=== PATIENT | female | born 1975 | race Caucasian/White ===

== ENCOUNTER 2017-03-25 10:28 | Outpatient (CLI) | payer MEDICAID ==
[2017-03-25 13:20] LABS: CHOL/HDL RATIO 6.3 (<4.4); CHOLESTEROL 190 mg/dL; HDL CHOLESTEROL 30 mg/dL; TRIGLYCERIDES 205 mg/dL; VLDL CHOLESTEROL 41 mg/dL
[2017-03-25 13:21] LABS: THYROID STIMULATING HORMONE 2.23 uIU/mL (0.34-5.60)
[2017-03-27 18:21] LABS: ANA SCREEN POSITIVE (NEGATIVE)
== END 2017-03-25 10:29 | disposition home or self-care (01) ==
LOC: LAB.N 10:28
PROVIDERS: ATTEND Nurse Practitioner Gerontology
DX: Z13.9 Encounter for screening, unspecified (principal); E55.9 Vitamin D deficiency, unspecified; E53.8 Deficiency of other specified B group vitamins; E07.9 Disorder of thyroid, unspecified; M25.50 Pain in unspecified joint
CPT/HCPCS: 36415; 80061; 82306; 82607; 84443; 85651; 86038; 86140; 86430

== ENCOUNTER 2018-02-23 08:00 | Outpatient (CLI) | payer MEDICAID ==
[2018-02-23 19:14] LABS: THYROID STIMULATING HORMONE 2.44 uIU/mL (0.34-5.60)
[2018-02-23 19:15] LABS: FREE T4 (FREE THYROXINE) 0.62 ng/dL (0.58-1.64)
== END 2018-02-23 08:01 | disposition home or self-care (01) ==
LOC: LAB.N 08:00
PROVIDERS: ATTEND Physician Assistant Medical
DX: E06.3 Autoimmune thyroiditis (principal)
CPT/HCPCS: 36415; 84439; 84443; 84481

== ENCOUNTER 2018-04-08 09:45 | Outpatient (CLI) | payer MEDICAID ==
[2018-04-08 13:25] LABS: THYROID STIMULATING HORMONE 1.07 uIU/mL (0.34-5.60)
[2018-04-08 13:29] LABS: FREE T4 (FREE THYROXINE) 0.57 ng/dL (0.58-1.64)
== END 2018-04-08 09:46 ==
LOC: LAB.N 09:45
PROVIDERS: ATTEND Physician Assistant Medical
DX: E06.3 Autoimmune thyroiditis (principal)
CPT/HCPCS: 36415; 84439; 84443; 84481

== ENCOUNTER 2019-04-22 22:21 | Outpatient (CLI) | payer MEDICAID ==
--- NOTE | 2019-04-23 01:41 | Ultrasound Report ---
Reason: CALF PAIN RIGHT Procedure Date: 04/22/2019 Accession Number: [id number] / [id number] Procedure: US - Duplex Ext Veins Right CPT Code: FULL RESULT: EXAM: RIGHT LOWER EXTREMITY VENOUS ULTRASOUND EXAM DATE: 04/22/2019 11:09 PM. CLINICAL HISTORY: CALF PAIN RIGHT. COMPARISON: None. TECHNIQUE: Real-time sonographic vascular imaging was performed by the education reviewer through the lower extremity utilizing both color-flow and Doppler spectral analysis. Multiple hospital insurance representative static images were saved for review. FINDINGS: Common Femoral Vein (CFV): Normal. CFV-GSV Junction: Normal. Profunda Femoral Vein (PFV): Normal. Femoral Vein (FV) Prox: Normal. Femoral Vein (FV) Mid: Normal. Femoral Vein (FV) Dist: Normal. Popliteal Vein: Normal. Posterior Tibial Veins: Normal. Peroneal Veins: Normal. Contralateral Side CFV: Normal. Other: None. IMPRESSION: No evidence of deep venous thrombosis in the right lower extremity. [facility]
== END 2019-04-22 22:22 | disposition home or self-care (01) ==
LOC: DI 22:21
PROVIDERS: ATTEND Physician Assistant Medical
DX: M79.661 Pain in right lower leg (principal)

== ENCOUNTER 2019-04-22 23:10 | Emergency (ER) | payer MEDICAID ==
--- NOTE | 2019-04-22 23:42 | ED Physician Documentation ---
PD HPI CHEST PAIN - Stated complaint Stated Complaint: RT LEG PX/CP - Chief complaint Chief Complaint: Ext Problem - History obtained from History obtained from: Patient, Family - History of Present Illness Timing - onset: How many days ago (3) Timing - onset during: Rest Timing - duration: Days (3) Timing - details: Gradual onset, Still present Quality: Aching, Pain Location: Left chest Worsened by: Movement, Palpation, Position Associated symptoms: Feeling faint / dizzy. No: Shortness of air, Diaphoresis, Nausea, Vomiting, General Weakness, Palpitations, Cough Similar symptoms before: Diagnosis (PE) Recently seen: Clinic - Additional information Additional information: 44-year-old female with a prior history of a provoked DVT and pulmonary embolism after a section 15 years ago has developed some pain in her right calf last week and she went into see her doctor about it they have ordered an ultrasound of the veins and she had the ultrasound done tonight as an outpatient at the hospital. We do not have results of that at this point. She is come to the emergency department because she is having some pain in her left upper chest the pain is above the breast and below the clavicle and is worsened by movement and deep palpation and with a deep breath the patient can feel the area of pain. She denies any diaphoresis or shortness of breath. She does complain of some joint aches and pains and general fatigue. She also is complaining of some sensation of warmth coming up her shoulders and over her head. This is happening in episodes. She does state that she is 44 years old and she is still menstrating. Review of Systems Constitutional: denies: Fever Eyes: denies: Decreased vision Ears: denies: Ear pain Nose: denies: Rhinorrhea / runny nose, Congestion Throat: denies: Sore throat Cardiac: reports: Chest pain / pressure. denies: Palpitations, Pedal edema, Calf pain Respiratory: denies: Dyspnea, Cough, Wheezing GI: denies: Abdominal Pain, Nausea, Vomiting, Constipation, Diarrhea : denies: Dysuria, Frequency Skin: denies: Rash Musculoskeletal: reports: Extremity pain. denies: Neck pain, Back pain Neurologic: denies: Generalized weakness, Focal weakness, Numbness PD PAST MEDICAL HISTORY - Allergies Allergies/Adverse Reactions: Allergies Allergy/AdvReac Type Severity Reaction Status Date / Time No Known Drug Allergies Allergy Verified 04/22/19 23:18 PD ED PE NORMAL - Vitals Vital signs reviewed: Yes (hypertensive mild ) - General General: Alert and oriented X 3, No acute distress, Well developed/nourished - HEENT HEENT: Atraumatic, PERRL, EOMI, Ears normal - Neck Neck: Supple, no meningeal sign, No bony TTP - Cardiac Cardiac: RRR, No murmur - Respiratory Respiratory: No respiratory distress, Clear bilaterally - Abdomen Abdomen: Normal bowel sounds, Soft, Non tender, Non distended, No organomegaly - Back Back: No CVA TTP, No spinal TTP - Derm Derm: Normal color, Warm and dry, No rash - Extremities Extremities: No deformity, No edema - Neuro Neuro: Alert and oriented X 3, occupational psychologist 2-12 intact, No motor deficit, No sensory deficit, Normal speech Eye Opening: Spontaneous Motor: Obeys Commands Verbal: Oriented GCS Score: 15 - Psych Psych: Normal mood, Normal affect Results - Vitals Vitals: Vital Signs - 24 hr 04/22/19 04/23/19 23:18 02:02 Temperature 36.8 C Heart Rate 62 70 Respiratory 14 16 Rate Blood Pressure 145/69 H 118/81 H O2 Saturation 99 99 Oxygen O2 Source Room air - EKG (time done) 2342 Rate: Rate (enter#) (61) Rhythm: NSR Compare to prior EKG: Old EKG unavailable Computer interpretation: Agree with computer - Labs Labs: Laboratory Tests 04/22/19 04/22/19 04/22/19 23:50 23:50 23:50 WBC 7.4 RBC 4.43 Hgb 11.2 L Hct 37.1 MCV 83.7 MCH 25.3 L MCHC 30.2 L RDW 15.5 H Plt Count 264 MPV 10.1 Neut # (Auto) 4.5 Lymph # (Auto) 2.2 [place] # (Auto) 0.5 Eos # (Auto) 0.1 Baso # (Auto) 0.1 Absolute Nucleated RBC 0.00 Nucleated RBC % 0.0 D-Dimer < 200.0 L Sodium 140 Potassium 4.0 Chloride 105 Carbon Dioxide 26 Anion Gap 9.0 BUN 12 Creatinine 0.8 Estimated GFR (MDRD) 78 L Glucose 118 H Calcium 9.0 Total Bilirubin 0.9 AST 16 ALT 22 Alkaline Phosphatase 80 Troponin I High Sens Total Protein 7.6 Albumin 4.4 Globulin 3.2 Albumin/Globulin Ratio 1.4 Lipase 31 TSH 04/22/19 04/22/19 23:50 23:50 WBC RBC Hgb Hct MCV MCH MCHC RDW Plt Count MPV Neut # (Auto) Lymph # (Auto) [place] # (Auto) Eos # (Auto) Baso # (Auto) Absolute Nucleated RBC Nucleated RBC % D-Dimer Sodium Potassium Chloride Carbon Dioxide Anion Gap BUN Creatinine Estimated GFR (MDRD) Glucose Calcium Total Bilirubin AST ALT Alkaline Phosphatase Troponin I High Sens < 2.3 L Total Protein Albumin Globulin Albumin/Globulin Ratio Lipase TSH 8.95 H - Rads (name of study) chest Radiology: Prelim report reviewed (Impression no acute cardiopulmonary findings radiographically.), EMP read indepedently, See rad report PD MEDICAL DECISION MAKING - ED course Complexity details: reviewed results, re-evaluated patient, considered differential, d/w patient, d/w family ED course: 44-year-old female with symptoms concerning for pulmonary embolism has negative diagnostics including a negative d-dimer and a negative DVT study. She does have some pain in the left chest above her breast and this does appear to be a musculoskeletal issue. I have encouraged the patient to pursue a mammogram and follow-up as well. The patient is found to be hypo-thyroid and I have encouraged her to seek treatment with Synthroid as she has previously had. 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 Your blood work does show you have hypothyroidism and you should restart on your thyroid medication. Follow-up with your primary care doctor. Discharge Date/Time: 04/23/19 02:03
[2019-04-22 23:56] LABS: BASOPHILS # (AUTO) 0.1 10^3/uL (0.0-0.1); BASOPHILS % (AUTO) 0.7 %; EOSINOPHILS # (AUTO) 0.1 10^3/uL (0.0-0.7); EOSINOPHILS % (AUTO) 1.1 %; HGB - HEMOGLOBIN 11.2 g/dL (12.0-16.0); LYMPHOCYTES # (AUTO) 2.2 10^3/uL (1.5-3.5); LYMPHOCYTES % (AUTO) 29.8 %; MEAN CORPUSCULAR HEMOGLOBIN 25.3 pg (27.0-31.0); MEAN CORPUSCULAR HGB CONC 30.2 g/dL (32.0-36.0); MEAN CORPUSCULAR VOLUME 83.7 fL (81.0-99.0); MEAN PLATELET VOLUME 10.1 fL (7.9-10.8); MONOCYTES # (AUTO) 0.5 10^3/uL (0.0-1.0); MONOCYTES % (AUTO) 6.7 %; NEUTROPHILS # (AUTO) 4.5 10^3/uL (1.5-6.6); NEUTROPHILS % (AUTO) 61.3 %; PLT - PLATELET COUNT 264 10^3/uL (130-450); RED BLOOD COUNT 4.43 10^6/uL (4.20-5.40); RED CELL DISTRIBUTION WIDTH 15.5 % (12.0-15.0); WHITE BLOOD COUNT 7.4 x10^3/uL (4.8-10.8)
[2019-04-23 00:08] LABS: ALBUMIN 4.4 g/dL (3.2-5.5); ALBUMIN/GLOBULIN RATIO 1.4 (1.0-2.2); BILIRUBIN,TOTAL 0.9 mg/dL (0.2-1.0); CREATININE 0.8 mg/dL (0.4-1.0); TOTAL PROTEIN 7.6 g/dL (6.7-8.2)
--- NOTE | 2019-04-23 00:13 | XRAY Report ---
Reason: left upper chest pain Procedure Date: 04/23/2019 Accession Number: [id number] / [id number] Procedure: XR - Chest 2 View X-Ray CPT Code: 81838 FULL RESULT: EXAM: CHEST RADIOGRAPHY EXAM DATE: 04/23/2019 12:00 AM. CLINICAL HISTORY: Left upper chest pain. COMPARISON: None. TECHNIQUE: 2 views. FINDINGS: Lungs/Pleura: No infiltrates. No pleural effusions or pneumothorax. Mediastinum: Heart and mediastinal contours are unremarkable. Other: None. IMPRESSION: No acute cardiopulmonary findings radiographically. [facility]
[2019-04-23 02:03] VITALS: BP 118/81
== END 2019-04-23 02:03 | disposition home or self-care (01) ==
LOC: ED 23:10
DX: R07.9 Chest pain, unspecified (principal); E06.3 Autoimmune thyroiditis; M79.661 Pain in right lower leg; Z86.718 Personal history of other venous thrombosis and embolism
CPT/HCPCS: 36415; 71046; 80053; 83690; 84443; 84484; 85025; 85379; 93005; 99283

== ENCOUNTER 2021-03-20 08:00 | Outpatient (CLI) | payer MEDICAID, OTHER ==
[2021-03-20 18:33] LABS: BASOPHILS # (AUTO) 0.1 10^3/uL (0.0-0.1); BASOPHILS % (AUTO) 0.8 %; EOSINOPHILS # (AUTO) 0.1 10^3/uL (0.0-0.7); EOSINOPHILS % (AUTO) 0.9 %; HCT - HEMATOCRIT 35.6 % (37.0-47.0); HGB - HEMOGLOBIN 10.3 g/dL (12.0-16.0); LYMPHOCYTES # (AUTO) 1.2 10^3/uL (1.5-3.5); LYMPHOCYTES % (AUTO) 17.9 %; MEAN CORPUSCULAR HGB CONC 28.9 g/dL (32.0-36.0); MEAN CORPUSCULAR VOLUME 79.5 fL (81.0-99.0); MEAN PLATELET VOLUME 10.5 fL (7.9-10.8); MONOCYTES # (AUTO) 0.3 10^3/uL (0.0-1.0); MONOCYTES % (AUTO) 4.9 %; NEUTROPHILS # (AUTO) 4.9 10^3/uL (1.5-6.6); NEUTROPHILS % (AUTO) 75.2 %; PLT - PLATELET COUNT 317 10^3/uL (130-450); RED BLOOD COUNT 4.48 10^6/uL (4.20-5.40); RED CELL DISTRIBUTION WIDTH 16.7 % (12.0-15.0); WHITE BLOOD COUNT 6.5 x10^3/uL (4.8-10.8)
[2021-03-20 18:37] LABS: SLIDE REVIEW? Indicated
[2021-03-20 18:42] LABS: ALBUMIN 4.8 g/dL (3.2-5.5); ALBUMIN/GLOBULIN RATIO 1.5 (1.0-2.2); BILIRUBIN,TOTAL 0.6 mg/dL (0.2-1.0); CALCIUM 8.9 mg/dL (8.5-10.3); CREATININE 0.6 mg/dL (0.4-1.0); POTASSIUM 4.1 mmol/L (3.5-5.0)
[2021-03-20 18:52] LABS: THYROID STIMULATING HORMONE 2.11 uIU/mL (0.34-5.60)
[2021-03-20 18:54] LABS: FREE T4 (FREE THYROXINE) 0.84 ng/dL (0.58-1.64)
[2021-03-20 18:55] LABS: PLATELET MORPHOLOGY NORMAL APPEARANCE (NORMAL)
[2021-03-20 18:56] LABS: PLATELET ESTIMATE, MANUAL NORMAL (130-450,000) (NORMAL)
== END 2021-03-20 23:59 | disposition home or self-care (01) ==
LOC: LAB.N 08:00
PROVIDERS: ATTEND Family Medicine
DX: E06.3 Autoimmune thyroiditis (principal); R00.2 Palpitations; R23.2 Flushing; R03.0 Elevated blood-pressure reading, without diagnosis of hypertension; F41.9 Anxiety disorder, unspecified
CPT/HCPCS: 36415; 80053; 84439; 84443; 84484; 85025